=== PATIENT | female | born 1990 | race Caucasian/White ===

== ENCOUNTER 2019-11-12 21:55 | Emergency (ER) | payer OTHER, SELFPAY ==
--- NOTE | ~2019-11-12 | NM_ITS ---
EXAMINATION: NM pulmonary perfusion DATE: 11/13/2019 02:12 INDICATION: Chest pain. TECHNIQUE: 4 mCi Tc-99m MAA was administered intravenously for perfusion images. Scintigraphic image s of the chest were obtained. COMPARISON: Chest CT 11/12/2019, chest 2 views 11/12/2019 FINDINGS: Perfusion images show no defects. ] IMPRESSION: 1. Normal lung perfusion. Reviewed, dictated and finalized at location A. IMPRESSION: 1. Normal lung perfusion.
--- NOTE | ~2019-11-12 | XR_ITS ---
EXAMINATION: XR chest 2V DATE: 11/13/2019 00:15 INDICATION: Cough. TECHNIQUE: Frontal and lateral views of the chest were obtained. COMPARISON: Chest CT 11/12/2019 FINDINGS: The chest demonstrates clear lungs without pneumonia, pleural effusion, or pneumothorax. Th e heart size is normal. IMPRESSION: 1. No acute cardiopulmonary disease. Reviewed, dictated and finalized at location A.
--- NOTE | ~2019-11-12 | CT_ITS ---
EXAMINATION: CTA chest PE protocol DATE: 11/12/2019 23:15 CDT INDICATION: Shortness of breath. Cough. TECHNIQUE: Computed tomographic angiography (CTA) of the chest was performed with 100 mL Omnipaque-35 0 intravenous contrast. The dose-length product was 849.02 mGy-cm. Maximum intensity projection 3D-re constructions of the aorta and other arteries were constructed by the technologist on a separate work station. Automated exposure control and iterative reconstruction technique were employed. COMPARISON: None. FINDINGS: Study is technically inadequate for evaluation of pulmonary embolism due to timing of contr ast bolus. No pleural or pericardial effusion. There is residual thymic tissue in the anterior medias tinum. No lymphadenopathy. No significant pleural or pericardial effusion. Heart size is normal. No p neumothorax. No focal airspace consolidation. No pulmonary nodules. IMPRESSION: 1. No acute cardiopulmonary disease. Study technically inadequate for evaluation of pulmonary embolis m. Reviewed, dictated and finalized at location A. IMPRESSION: 1. No acute cardiopulmonary disease. Study technically inadequate for evaluatio n of pulmonary embolism.
[2019-11-12 22:03] VITALS: BP 148/108; PULSE 125; TEMP 36.7; O2SAT 98
[2019-11-12 22:36] LABS: Basophils Absolute Auto 0.1 K/mm3 (0.0-0.1); Basophils Percent Auto 0.7 % (0.2-1.2); Eosinophils Absolute Auto 0.5 K/mm3 (0-0.3); Eosinophils Percent Auto 2.9 % (0-4.4); Hematocrit 42.7 % (37.0-47.0); Hemoglobin 14.9 g/dL (12.0-15.0); Immature Granulocyte Absolute 0.06 K/mm3 (0.00-0.031); Immature Granulocyte Percent A 0.3 % (0-0.5); Lymphocytes Absolute Auto 6.38 K/mm3 (0.9-3.2); Lymphocytes Percent Auto 35.4 % (18.3-44.2); Mean Corpuscular HGB Conc 34.9 g/dl (32-36); Mean Corpuscular Hemoglobin 29.3 pg (26-34); Mean Corpuscular Volume 84.1 fl (80-100); Mean Platelet Volume 8.9 fl (7.4-10.4); Monocytes Absolute Auto 1.7 K/mm3 (0.1-0.6); Monocytes Percent Auto 9.3 % (2.6-8.5); Neutrophils Absolute Auto 9.3 K/mm3 (1.3-6.7); Neutrophils Percent Auto 51.4 % (45.5-73.1); Platelet Count Result 601 k/mm3 (150-375); Red Blood Count 5.08 M/mm3 (4.2-5.4); Red Cell Distribution Width 12.9 % (11.5-14.5)
[2019-11-12 22:48] LABS: Blood Urea Nitrogen 13 mg/dL (7-17); Calcium 9.4 mg/dL (8.4-10.2); Carbon Dioxide 26 mmol/L (22-30); Chloride 102 mmol/L (98-107); Estimated CRCL calculation 136 ml/min; Estimated Glomerular Filt Rate > 60; Glucose 134 mg/dL (65-105); Potassium 3.5 mmol/L (3.4-5.0); Sodium 138 mmol/L (137-145)
[2019-11-12 23:00] LABS: NT Pro B Type Natriuretic Pept 22 PG/ML (5-100); Troponin I < 0.012 ng/mL (0.000-0.034)
[2019-11-12 23:05] VITALS: BP 162/83; PULSE 115; RESP 18; O2SAT 100
--- NOTE | 2019-11-12 23:05 | ED.GENADULT ---
HPI - General Adult General Chief complaint: Upper Respiratory Infection Stated complaint: sob, cough Time Seen by Provider: 11/12/19 22:17 History of Present Illness HPI narrative: Patient is a 29-year-old female who was referred here by her primary care physician for chest pain and cough. Patient reports that she has been having cough for the last couple weeks. She has since developed some central chest pain. Symptoms improve if she leans forward. She reports that she has mild irritation in the back of her throat but no sinus congestion/productive cough. Additionally the patient has had a negative respiratory panel. She has tried cough syrup without relief of her cough. Patient referred here for PE evaluation as she has a Mirena persistent cough with chest pain. Patient has also had a negative flu and strep test performed. Records provided by patient's PCP. Lab work from 11/09/2019 shows a leukocytosis of 14.4 and a platelet count of 620,000. Related Data Allergies Allergy/AdvReac Type Severity Reaction Status Date / Time No Known Allergies Allergy Verified 11/12/19 22:31 Review of Systems Review of Systems: All systems reviewed & are unremarkable except as noted in HPI and below Constitutional: Constitutional: Denies chills, Denies fever(s) and Denies weakness ENT: Denies nasal congestion and Reports sore throat Cardiovascular: Cardiovascular: Reports chest pain and Denies radiating jaw, neck or arm pain Respiratory: Respiratory: Reports cough, Denies dyspnea and Denies wheezing Gastrointestinal: Gastrointestinal: Denies abdominal pain, Denies heartburn, Denies nausea and Denies vomiting Musculoskeletal: Musculoskeletal: Denies muscle cramps Comments: No leg swelling PMFSH Past Medical History Medical History (Updated 11/13/19 @ 02:46 by Brian Rogers MD) Adenoma of liver Adrenal nodule Diverticulitis Dyshidrotic eczema Fatty liver GERD (gastroesophageal reflux disease) Hereditary spherocytosis Hypertension Leukocytosis Migraines Polycystic ovarian syndrome Thrombocytosis after splenectomy Surgical History Surgical History (Updated 11/13/19 @ 02:04 by Brian Rogers MD) H/O splenectomy Hx of tonsillectomy Social History Social History (Updated 11/13/19 @ 02:06 by Brian Rogers MD) Smoking status: Never smoker Gender identity (if verbalized by the patient): Female Exam Narrative: Exam Narrative: GENERAL: Well-appearing, well-nourished, and in no acute distress. HEAD: Normocephalic, atraumatic. ENT: TMs normal bilaterally. [place] mucous membranes. Normal appearing posterior oropharynx. CHEST: Clear to auscultation. No respiratory distress. Occasional cough. HEART: Tachycardic and regular. No murmur heard. Normal peripheral pulses. ABDOMEN: Soft, nontender, nondistended. EXTREMITIES: Normal range of motion. No edema. Negative Homans sign. SKIN: Warm, dry, no rash. NEURO: Alert and oriented x3. Course Course Emergency Course: Patient informed of results. No real improvement with viscous lidocaine. CTA nondiagnostic x2. Nuc med perfusion scan without evidence of PE. Will discharge with naproxen for chest discomfort related to coughing. Tachycardia improved with IV fluid. Patient will also receive cough syrup containing codeine to see if this helps her cough. Needs to follow-up with her PCP. Patient with slight elevation in white blood cell count when compared to labs from a couple days ago. Patient has chronic elevations however her white blood cells and her platelets due to splenectomy and history of spherocytosis. Will give a z-pack incase pt has pertussis. Vital Signs Vital signs: Vital Signs Temperature 98.1 F 11/12/19 22:03 Pulse Rate 125 H 11/12/19 22:03 Blood Pressure 148/108 H 11/12/19 22:03 Pulse Oximetry 98 11/12/19 22:03 Temperature 98.1 F 11/12/19 22:03 Pulse Rate 104 H 11/13/19 02:13 Respiratory Rate 24 H 11/13/19 02:13 Blood Pr
[2019-11-12 23:09] LABS: Prothrombin Time 13.2 Seconds (11.1-14.7)
[2019-11-12 23:42] VITALS: O2SAT 100
[2019-11-13 00:16] VITALS: BP 148/98; PULSE 104; RESP 22; O2SAT 100
[2019-11-13 00:56] LABS: D Dimer 0.27 ug/mL (<0.48)
[2019-11-13 02:13] VITALS: BP 135/83; PULSE 104; RESP 24; O2SAT 100
[2019-11-13] MEDS: LIDOCAINE HCL 2% VISC SOLN 15 ML UDC PO (02:17)
[2019-11-13 02:53] VITALS: BP 133/81; PULSE 80; RESP 19; TEMP 36.4; O2SAT 100
== END 2019-11-13 02:59 | disposition home or self-care (01) ==
PROVIDERS: Emergency Provider Emergency Medicine; PCP Internal Medicine
DX: R05 Cough (principal); K21.9 Gastro-esophageal reflux disease without esophagitis; D58.0 Hereditary spherocytosis; I10 Essential (primary) hypertension; E28.2 Polycystic ovarian syndrome; Z90.81 Acquired absence of spleen
CPT/HCPCS: 36415; 71046; 71275; 78580; 80048; 83880; 84484; 85025; 85380; 85610; 85730; 99284; A9540; Q9967

== ENCOUNTER 2022-04-07 15:57 | Emergency (ER) | payer OTHER, SELFPAY ==
--- NOTE | ~2022-04-07 | CT_ITS ---
EXAMINATION: CT abdomen pelvis w con DATE: 04/07/2022 17:43 INDICATION: abd pain TECHNIQUE: Computed tomography (CT) of the abdomen and pelvis was performed with 100 mL Omnipaque-350 intravenous contrast. Automated exposure control and iterative reconstruction technique were employe d. The dose-length product was 1543.32 mGy-cm. COMPARISON: CTPA 11/12/2019. FINDINGS: Lower thorax: Unremarkable Liver: Normal. Biliary/Gallbladder: Gallbladder is normal. No bile duct dilation. Pancreas: No mass or duct dilation. Spleen: Normal. Adrenals:Left adrenal adenoma Kidneys: No mass, stone, or hydronephrosis. GI tract: No small or large bowel dilation. Normal appendix. Diverticulosis. Very mild short segment pericolonic inflammatory change descending colon. Mesentery/Peritoneum: No ascites, mass, or free air. Retroperitoneum: No mass. Pelvis: Pelvic organs are within normal limits. IUD, in good position Soft Tissues: Soft tissues and body wall unremarkable. Bones: No acute osseous finding. IMPRESSION: Very mild, uncomplicated acute diverticulitis in the descending colon. Reviewed, dictated and finalized at location K.
--- NOTE | 2022-04-07 16:01 | PC.NURSE ---
pt ambulatory with steady gait to bathroom to provide urine speciman at this time.
[2022-04-07 16:13] VITALS: BP 148/109; PULSE 105; RESP 20; TEMP 36.6; O2SAT 99
[2022-04-07 16:21] LABS: Appearance Urine Clear (Clear); Bilirubin Urine Negative (Negative); Blood Urine Negative (Negative); Color Urine Yellow (Yellow); Glucose Urine UA Negative (Negative); Ketones Urine Negative (Negative); Leukocyte Esterase Ur Negative LEU/UL (Negative); Nitrate Urine Negative (Negative); Protein Urine Negative (Negative); Urobilinogen Urine 0.2 mg/dL (<2.0)
[2022-04-07 16:27] LABS: Add Urine Microscopic? NO
[2022-04-07 16:27] LABS: Basophils Absolute Auto 0.1 K/mm3 (0.0-0.1); Basophils Percent Auto 0.9 % (0.2-1.2); Eosinophils Absolute Auto 0.3 K/mm3 (0-0.3); Eosinophils Percent Auto 2.4 % (0-4.4); Hematocrit 44.5 % (37.0-47.0); Hemoglobin 15.1 g/dL (12.0-15.0); Immature Granulocyte Absolute 0.02 K/mm3 (0.00-0.031); Immature Granulocyte Percent A 0.2 % (0-0.5); Lymphocytes Absolute Auto 6.03 K/mm3 (0.9-3.2); Lymphocytes Percent Auto 47.3 % (18.3-44.2); Mean Corpuscular HGB Conc 33.9 g/dl (32-36); Mean Corpuscular Hemoglobin 27.7 pg (26-34); Mean Corpuscular Volume 81.7 fl (80-100); Mean Platelet Volume 8.8 fl (7.4-10.4); Monocytes Absolute Auto 1.3 K/mm3 (0.1-0.6); Monocytes Percent Auto 9.9 % (2.6-8.5); Neutrophils Percent Auto 39.3 % (45.5-73.1); Platelet Count Result 719 k/mm3 (150-375); Red Blood Count 5.45 M/mm3 (4.2-5.4); Red Cell Distribution Width 13.6 % (11.5-14.5); White Blood Count 12.8 K/mm3 (4.5-10.0)
[2022-04-07 16:36] LABS: Alanine Aminotransferase 26 U/L (6-35); Albumin Level 4.9 g/dL (3.5-5.1); Alkaline Phosphatase 93 U/L (38-126); Anion Gap 17 mmol/L (8-16); Aspartate Amino Transferase 27 U/L (14-36); Bilirubin,Total 0.5 mg/dL (0.2-1.3); Blood Urea Nitrogen 6 mg/dL (7-17); Calcium 9.7 mg/dL (8.4-10.2); Carbon Dioxide 26 mmol/L (22-30); Chloride 99 mmol/L (98-107); Estimated CRCL calculation 140 ml/min; Estimated Glomerular Filt Rate > 60; Glucose 103 mg/dL (65-110); Lipase 113 U/L (23-300); Potassium 3.8 mmol/L (3.4-5.0); Sodium 142 mmol/L (137-145)
--- NOTE | 2022-04-07 16:36 | PC.NURSE ---
Dr. Kenyon at bedside to assess pt.
--- NOTE | 2022-04-07 16:38 | ED.ABDPAIN ---
HPI - Abdominal Pain General Chief Complaint: Abdominal Pain Stated Complaint: diverticulitis with constipation Time Seen by Provider: 04/07/22 16:21 Source: RN notes reviewed History of Present Illness HPI narrative: Patient presents emergency department from home for abdominal pain. Patient states that she has been having increasing lower abdominal pain that has been moving into the right lower quadrant over the past week. She states that she had an episode of diverticulitis several months ago and since that time has been having progressively worsening constipation states she has been taking laxatives but has had increased abdominal pain over the past week the pain is now located in the right lower quadrant described as sharp and stabbing she denies any fever chills nausea vomiting diarrhea or any other symptoms states she not taking thing for pain today Related Data Home Medications Medication Instructions Recorded Confirmed B-complex with vitamin C (Super B 1 tablet PO DAILY 12/22/20 Complex-Vitamin C tablet) Saccharomyces boulardii 50 mg mg PO 12/22/20 capsule amitriptyline 50 mg tablet 50 mg PO QHS 12/22/20 cholecalciferol (vitamin D3) 125 125 mcg PO DAILY 12/22/20 mcg (5,000 unit) capsule (Dialyvite Vitamin D) clobetasol 0.05 % topical ointment 1 applic topical QAM AND QPM 12/22/20 epinephrine 0.1 mg/0.1 mL IM .prn 12/22/20 injection, auto-injector famotidine 20 mg tablet (Pepcid) 20 mg PO DAILY 12/22/20 fluticasone propionate 50 1 spray intranasal DAILY 12/22/20 mcg/actuation nasal spray,suspension (Flonase Allergy Relief) folic acid 1 mg tablet 1 mg PO DAILY 12/22/20 levetiracetam 250 mg tablet 250 mg PO Q12H 12/22/20 levonorgestrel 20 mcg/24 hours (7 1 device intrauterine ONCE 12/22/20 yrs) 52 mg intrauterine device (Mirena) loratadine 10 mg tablet (Claritin) 10 mg PO DAILY 12/22/20 montelukast 10 mg tablet 10 mg PO DAILY 12/22/20 spironolactone 50 mg tablet 50 mg PO BID 12/22/20 valsartan 80 mg tablet 80 mg PO DAILY 12/22/20 Allergies Allergy/AdvReac Type Severity Reaction Status Date / Time potassium [From Potassimin] Allergy Mild Abdominal Verified 12/22/20 13:19 Pain Review of Systems Review of Systems: Gen.: Denies fevers or chills ENT: Denies congestion Respiratory: Denies shortness of breath or cough CV: Denies chest pain or palpitations GI: See HPI Musculoskeletal: Denies back pain or muscle pain Neuro: Denies numbness, tingling, weakness or focal weakness Skin: Denies rash Except as documented, all other systems reviewed and negative PMFSH Past Medical History Medical History Adenoma of liver Adrenal nodule Diverticulitis Dyshidrotic eczema Fatty liver GERD (gastroesophageal reflux disease) Hereditary spherocytosis Hypertension Leukocytosis Migraines Polycystic ovarian syndrome Thrombocytosis after splenectomy Surgical History Surgical History H/O splenectomy Hx of tonsillectomy Social History Social History Smoking status: Never smoker Gender identity (if verbalized by the patient): Female Exam Narrative: APPEARANCE: No acute distress, nontoxic, resting in bed HEENT: Normocephalic, atraumatic, OMM RESPIRATORY: No respiratory distress, clear to auscultation bilaterally with no rhonchi wheezing or rales CARDIOVASCULAR: RRR s murmur ABDOMINAL: Soft nondistended tender palpation right lower quadrant no tenderness right upper quadrant, left upper quadrant left lower quadrant no rebound or guarding MUSCULOSKELETAl: Moves all extremities. No clubbing, cyanosis or edema. NEURO: Awake and alert. Following commands, speech normal, no focal deficits SKIN:: Warm, dry. Normal Color PSYCHIATRIC: Normal affect/mood Course Course Emergency Course: Patient states that they a
[2022-04-07] MEDS: KETOROLAC 30 MG/ML VIAL (*BKC) IV PUSH (16:50)
[2022-04-07] MEDS: SODIUM CHLORIDE 0.9% IV 1,000 ML 999 ML IV CONT (16:50)
[2022-04-07 18:43] VITALS: BP 140/92; PULSE 89; RESP 16; O2SAT 97
[2022-04-07] MEDS: AMOXICILLIN/CLAVULANATE K 875-125 MG TAB 1 TABLET PO (19:11)
== END 2022-04-07 19:19 | disposition home or self-care (01) ==
PROVIDERS: Emergency Provider Emergency Medicine; PCP Internal Medicine
DX: K57.92 Diverticulitis of intestine, part unspecified, without perforation or abscess without bleeding (principal); K21.9 Gastro-esophageal reflux disease without esophagitis; I10 Essential (primary) hypertension
CPT/HCPCS: 36415; 74177; 80053; 81003; 81025; 83690; 85025; 96361; 96374; 99284; A9270; J1885; J7030; Q9967

== ENCOUNTER 2023-10-04 11:40 | Emergency (ER) | payer OTHER, SELFPAY ==
--- NOTE | ~2023-10-04 | US_ITS ---
EXAMINATION: US pelvic complete w TV DATE: 10/04/2023 15:19 INDICATION: Right-sided pelvic pain TECHNIQUE: Multiple transabdominal and endovaginal sonographic images of the pelvis were obtained. COMPARISON: CT from today FINDINGS: The uterus measures 7.5 x 3.5 x 4.9 cm. An IUD is present in expected position. There is a small subserosal fibroid of the uterine fundus. The endometrial complex measures 6 mm. The right ovar y measures 1.9 x 2.2 x 1.5 cm. The left ovary measures 2.3 x 2.2 x 2.2 cm. There is normal vascular f low in the ovaries. There is no free fluid in the pelvis. IMPRESSION: 1. No sonographic correlate for the patient's symptoms. Reviewed, dictated and finalized at location F. OM [employer]KER
--- NOTE | ~2023-10-04 | CT_ITS ---
EXAMINATION: CT abdomen pelvis w con DATE: 10/04/2023 13:13 INDICATION: Right lower quadrant abdominal pain TECHNIQUE: Computed tomography (CT) of the abdomen and pelvis was performed with 100 mL Omnipaque-350 intravenous contrast. Automated exposure control and iterative reconstruction technique were employe d. The dose-length product was 1686.67 mGy-cm. COMPARISON: 04/07/2022 FINDINGS: Lung bases are clear. Heart size is normal. No pericardial or pleural effusion. Liver, gallbladder, p ancreas, right adrenal gland and bilateral kidneys are normal. 2.4 cm low-attenuation left adrenal ad enoma. Spleen is not visualized and either developmentally or surgically absent. There is moderate co lonic diverticulosis with a descending colon predominance without adjacent inflammatory change to sug gest diverticulitis. Small bowel and appendix are normal. Bladder is normal. T-shaped IUD in expected position within the anteverted uterus.1.6 m subserosal fibroid along the right side of the uterine f undus. Bilateral adnexa are unremarkable. No free intraperitoneal gas or fluid. No pathologically enl arged abdominal or pelvic lymphadenopathy. Moderate thoracic and mild lumbar spondylosis. IMPRESSION: 1. No acute intra-abdominal/pelvic process. Specifically normal appendix. 2. Diverticulosis. 3. IUD in expected position within the anteverted uterus with 1.6 cm subserosal fibroid at the right side of the uterine fundus. Reviewed, dictated and finalized at location B. [employer]
[2023-10-04 11:50] VITALS: BP 155/80; PULSE 120; RESP 16; TEMP 36.7; O2SAT 100
[2023-10-04 12:13] LABS: Basophils Absolute Auto 0.1 K/mm3 (0.0-0.1); Basophils Percent Auto 0.7 % (0.2-1.2); Eosinophils Absolute Auto 0.2 K/mm3 (0-0.3); Eosinophils Percent Auto 1.1 % (0-4.4); Hematocrit 40.9 % (37.0-47.0); Hemoglobin 14.1 g/dL (12.0-15.0); Immature Granulocyte Absolute 0.05 K/mm3 (0.00-0.031); Immature Granulocyte Percent A 0.3 % (0-0.5); Lymphocytes Absolute Auto 5.63 K/mm3 (0.9-3.2); Lymphocytes Percent Auto 32.4 % (18.3-44.2); Mean Corpuscular HGB Conc 34.5 g/dl (32-36); Mean Corpuscular Hemoglobin 28.9 pg (26-34); Mean Corpuscular Volume 83.8 fl (80-100); Mean Platelet Volume 8.8 fl (7.4-10.4); Monocytes Absolute Auto 1.5 K/mm3 (0.1-0.6); Monocytes Percent Auto 8.5 % (2.6-8.5); Neutrophils Absolute Auto 9.9 K/mm3 (1.3-6.7); Platelet Count Result 594 k/mm3 (150-375); Red Blood Count 4.88 M/mm3 (4.2-5.4); Red Cell Distribution Width 13.8 % (11.5-14.5); White Blood Count 17.4 K/mm3 (4.5-10.0)
[2023-10-04 12:20] VITALS: BP 130/85; PULSE 109; RESP 19; O2SAT 97
[2023-10-04 12:23] LABS: Alanine Aminotransferase 21 U/L (6-35); Albumin Level 4.4 g/dL (3.5-5.1); Alkaline Phosphatase 88 U/L (38-126); Anion Gap 12 mmol/L (8-16); Aspartate Amino Transferase 23 U/L (14-36); Bilirubin,Total 0.6 mg/dL (0.2-1.3); Blood Urea Nitrogen 8 mg/dL (7-17); Calcium 9.9 mg/dL (8.4-10.2); Carbon Dioxide 21 mmol/L (22-30); Chloride 105 mmol/L (98-107); Estimated Glomerular Filt Rate > 60; Glucose 115 mg/dL (65-110); Lipase 125 U/L (23-300); Potassium 3.4 mmol/L (3.4-5.0); Sodium 138 mmol/L (137-145)
[2023-10-04 12:35] LABS: Appearance Urine Clear (Clear); Bilirubin Urine Negative (Negative); Blood Urine Negative (Negative); Color Urine Yellow (Yellow); Glucose Urine UA Negative (Negative); Ketones Urine Trace mg/dL (Negative); Leukocyte Esterase Ur Negative LEU/UL (Negative); Nitrate Urine Negative (Negative); Protein Urine Negative (Negative); Specific Grav Ur 1.019 (1.001-1.035); Urobilinogen Urine 0.2 mg/dL (<2.0); pH Urine 5.5 (5.0-9.0)
[2023-10-04 12:36] LABS: Atypical Lymphocytes Present; Platelet Estimate Adequate (Adequate); Schistocytes None Seen (NORMAL)
[2023-10-04 12:38] LABS: Add Urine Microscopic? NO
[2023-10-04] MEDS: SODIUM CHLORIDE 0.9% IV 1,000 ML 999 ML IV CONT (12:46)
[2023-10-04] MEDS: ONDANSETRON INJ 4 MG/2 ML VIAL IV PUSH (12:47)
[2023-10-04] MEDS: MORPHINE SULFATE (*CRX) 4 MG/ML INJ IV PUSH (12:49)
[2023-10-04 12:58] LABS: Lactic Acid Reflex 1.2 mmol/L (0.7-2.0)
[2023-10-04 13:50] VITALS: BP 132/85; PULSE 99; RESP 18; O2SAT 99
--- NOTE | 2023-10-04 14:14 | ED.GENADULT ---
HPI - General Adult General Chief complaint: Abdominal Pain Stated complaint: NV dizyy stomach pain Time Seen by Provider: 10/04/23 12:16 History of Present Illness HPI narrative: patient is a 33-year-old female who presents ER with right-sided abdominal pain. Worsening over last couple days. Aching mid axillary line moving into the abdomen. Hurts in her right upper quadrant and right lower quadrant. No urinary frequency urgency or dysuria. She thought it may be her diverticulitis show she started a soft diet. She reports mild constipation. No chest pain or chest pressure. No difficulty breathing no alleviating factors. Related Data Home Medications Medication Instructions Recorded Confirmed B-complex with vitamin C (Super B 1 tablet PO DAILY 12/22/20 Complex-Vitamin C tablet) Saccharomyces boulardii 50 mg mg PO 12/22/20 capsule amitriptyline 50 mg tablet 50 mg PO QHS 12/22/20 cholecalciferol (vitamin D3) 125 125 mcg PO DAILY 12/22/20 mcg (5,000 unit) capsule (Dialyvite Vitamin D) clobetasol 0.05 % topical ointment 1 applic topical QAM AND QPM 12/22/20 epinephrine 0.1 mg/0.1 mL IM .prn 12/22/20 injection, auto-injector famotidine 20 mg tablet (Pepcid) 20 mg PO DAILY 12/22/20 fluticasone propionate 50 1 spray intranasal DAILY 12/22/20 mcg/actuation nasal spray,suspension (Flonase Allergy Relief) folic acid 1 mg tablet 1 mg PO DAILY 12/22/20 levetiracetam 250 mg tablet 250 mg PO Q12H 12/22/20 levonorgestrel 21 mcg/24 hours (8 1 device intrauterine ONCE 12/22/20 yrs) 52 mg intrauterine device (Mirena) loratadine 10 mg tablet (Claritin) 10 mg PO DAILY 12/22/20 montelukast 10 mg tablet 10 mg PO DAILY 12/22/20 spironolactone 50 mg tablet 50 mg PO BID 12/22/20 valsartan 80 mg tablet 80 mg PO DAILY 12/22/20 Allergies Allergy/AdvReac Type Severity Reaction Status Date / Time potassium [From Potassimin] Allergy Mild Abdominal Verified 12/22/20 13:19 Pain Review of Systems Review of Systems: All systems reviewed & are unremarkable except as noted in HPI and below Constitutional: Constitutional: Reports no additional constitutional complaints ENT: Reports system reviewed and no additional complaints, except as documented Cardiovascular: Cardiovascular: Reports no additional cardiovascular complaints Respiratory: Respiratory: Reports no additional respiratory complaints Gastrointestinal: Gastrointestinal: Reports abdominal pain, Reports constipation, Denies nausea and Denies vomiting Genitourinary: Genitourinary: Reports no additional female genitourinary complaints PMFSH Past Medical History Medical History Adenoma of liver Adrenal nodule Diverticulitis Dyshidrotic eczema Fatty liver GERD (gastroesophageal reflux disease) Hereditary spherocytosis Hypertension Leukocytosis Migraines Polycystic ovarian syndrome Thrombocytosis after splenectomy Surgical History Surgical History H/O splenectomy Hx of tonsillectomy Social History Social History Smoking status: Never smoker Gender identity (if verbalized by the patient): Female Exam Narrative: GENERAL: Well-appearing, well-nourished, and in no acute distress. HEAD: Normocephalic, atraumatic. ENT: Mucous membranes moist. NECK: Supple. CHEST: Clear to auscultation. No respiratory distress. HEART: Regular rate and rhythm. Normal peripheral pulses. ABDOMEN: Soft, tender palpation in the upper and lower quadrant on the right side without guarding, nondistended. EXTREMITIES: Normal range of motion. No edema. SKIN: Warm, dry, no rash. NEURO: Alert and oriented x3. PSYCH: Normal mood and affect. Course Course Emergency Course: patient still is some mild right-sided discomfort. No acute process on ultrasound or CT scan of the ab
[2023-10-04] MEDS: IBUPROFEN 400 MG TABLET 800 MG PO (15:15)
--- NOTE | 2023-10-04 15:16 | PC.NURSE ---
Pt returned to room 11 from US
[2023-10-04 16:14] VITALS: BP 140/88; PULSE 84; RESP 16; O2SAT 99
== END 2023-10-04 16:15 | disposition home or self-care (01) ==
PROVIDERS: Emergency Medicine; Emergency Provider Emergency Medicine; PCP Internal Medicine
DX: R10.11 Right upper quadrant pain (principal); R10.31 Right lower quadrant pain; I10 Essential (primary) hypertension; E28.2 Polycystic ovarian syndrome; K21.9 Gastro-esophageal reflux disease without esophagitis; Z90.81 Acquired absence of spleen; Z97.5 Presence of (intrauterine) contraceptive device; K57.90 Diverticulosis of intestine, part unspecified, without perforation or abscess without bleeding
CPT/HCPCS: 36415; 74177; 76830; 76856; 80053; 81003; 81025; 83605; 83690; 85025; 96361; 96374; 96375; 99284; A9270; J2270; J2405; J7030; Q9967

== ENCOUNTER 2023-12-16 12:44 | Outpatient (CLI) | payer OTHER, SELFPAY ==
--- NOTE | ~2023-12-16 | XR_ITS ---
EXAMINATION: XR chest 2V Exam Date/Time: 12/16/2023 12:50 CDT HISTORY: CHEST CONGESTION Comparison: 11/12/2019. RESULT: Lines, tubes, and devices: None. Lungs and pleura: Clear. Cardiomediastinal silhouette: Stable. Other: No acute osseous or upper abdominal finding. IMPRESSION: No acute cardiopulmonary process. Reviewed, dictated and finalized at location K.
== END 2023-12-16 12:45 ==
PROVIDERS: PCP Internal Medicine; Visit Provider Internal Medicine
DX: R09.89 Other specified symptoms and signs involving the circulatory and respiratory systems (principal); R05.9 Cough, unspecified
CPT/HCPCS: 71046

== ENCOUNTER 2024-01-13 14:36 | Outpatient (CLI) | payer OTHER, SELFPAY ==
--- NOTE | ~2024-01-13 | US_ITS ---
Middle Anterior chest wall ULTRASOUND (Doppler ultrasound interrogation techniques used as needed for this exam.) Ordering provider: Carola Velarde MD History: . Chest wall mass . Comparison: None. FINDINGS/impression: 2 Areas palpated subcutaneously. 1. Midline Isoechoic and measures 3.6 x 1.1 x 1.5 cm. 2. 2 the left is isoechoic and measures 5.4 x 1.7 x 4.8 cm. They may represent lipomas. Follow-up advised. Reviewed, dictated and finalized at location A.
== END 2024-01-13 14:37 ==
PROVIDERS: PCP Internal Medicine; Visit Provider Internal Medicine
DX: R22.2 Localized swelling, mass and lump, trunk (principal)
CPT/HCPCS: 76604